=== PATIENT | male | born 1975 ===

== ENCOUNTER 2018-03-04 05:32 | Day surgery (SDC) | payer OTHER ==
[2018-03-04] VITALS (11 sets, daily range): BP systolic 108–117; BP diastolic 70–81
[~2018-03-04] VITALS: Ht 162.6 cm; Wt 95.3 kg
[~2018-03-04 05:32] MED LIST: FISH OIL OMEGA1 EAC3 PO; GABAPENTIN300 MG ORAL; IBUPROFEN600 MG ORAL; LEXAPRO10 MG ORAL
[2018-03-04] MEDS ORDERED: celeBREX 200mg Cap **SURGERY PATIENTS ONLY ORAL ONE ×2 (06:15→06:28)
[2018-03-04] MEDS ORDERED: oxyCONTIN 20mg tab ORAL ONE (06:15)
[2018-03-04] MEDS ORDERED: ceFAZolin sod 1 GM in D5W 55 ML IVPB SCH (06:30)
[2018-03-04] MEDS ORDERED: Ropivacaine 5mg/ml Vial 30ml INJ ONE (07:18)
[2018-03-04] MEDS ORDERED: LR 1000ml 1,000 ML IVLG SCH (07:33)
--- NOTE | 2018-03-04 07:36 | Anethesia Preoperative Eval ---
Anesthesia Pre-op PMH/ROS General Date of Evaluation: Mar 04, 2018 Time of Evaluation: 07:51 Anesthesiologist: Elsa ASA Score: ASA 2 Mallampati Score Class I : Soft palate, uvula, fauces, pillars visible Class II: Soft palate, uvula, fauces visible Class III: Soft palate, base of uvula visible Class IV: Only hard plate visible Mallampati Classification: Class II Surgeon: Deyanira Diagnosis: L Shoulder Pain Surgical Procedure: L Shoulder Arthroscopy Social History: current smoker Family History: no anesthesia problems Allergies: Coded Allergies: No Known Allergies (Unverified , 02/27/18) Medications: see eMAR Past Medical History Other: obesity - BMI 37 PSxH Narrative: L Shoulder Arthroscopy 2017 Anesthesia Pre-op Phys. Exam Physician Exam Last Vital Signs Date Time Temp Pulse Resp B/P (MAP) Pulse Ox O2 Delivery O2 Flow Rate FiO2 03/04/18 05:59 97.0 61 20 115/77 97 Room Air 97.0 Constitutional: NAD Neurologic: CN 2-12 intact Cardiovascular: RRR Respiratory: CTA Gastrointestinal: S/NT/ND Airway Exam Mallampati Score: Class II MO: full ROM: limited Teeth: missing, intact Anesthesia Pre-op A/P Risk Assessment & Plan Assessment: ASA 2 Plan: GA, L Supraclavicular Block Status Change Before Surgery: No Pre-Antibiotics Dru Grams Ancef IV Given Within 1 Hr of Incision: Yes Time Given: 08:31 Tonio Hunter MD Mar 04, 2018 07:36
[2018-03-04] MEDS ORDERED: Labetalol 5mg/ml 20ml vial IV PRN (07:45)
[2018-03-04] MEDS ORDERED: oxyCODONE HCL/Acetaminophen 5/325mg ORAL PRN (07:45)
[2018-03-04] MEDS ORDERED: Hydromorphone 0.5mg/0.5ml inj IVP PRN (07:45)
[2018-03-04] MEDS ORDERED: Midazolam 2mg/2ml Inj IVP PRN (07:45)
[2018-03-04] MEDS ORDERED: DiphenhydrAMINE 50mg/ml Inj IVP PRN (07:45)
[2018-03-04] MEDS ORDERED: Norco 5mg/325mg tab ORAL PRN ×2 (07:45→15:01)
[2018-03-04] MEDS ORDERED: Ketorolac 30mg Inj IV PRN ×2 (07:45)
[2018-03-04] MEDS ORDERED: HYDROcodone/Acetamin 7.5/325 tab ORAL PRN (07:45)
[2018-03-04] MEDS ORDERED: LORazepam Inj 2mg/ml 1ml IV PRN (07:45)
[2018-03-04] MEDS ORDERED: fentaNYL 100 mcg/2 mL IV PRN (07:45)
[2018-03-04] MEDS ORDERED: Atropine Inj 1mg/10ml Syr IV PRN (07:45)
[2018-03-04] MEDS ORDERED: NS Irrig 2000ml IRRIG ONE (08:00)
[2018-03-04] MEDS ORDERED: Alfentanil 2ml Inj ONE (08:00)
[2018-03-04] MEDS ORDERED: Dexamethasone 4mg/ml vial ONE (08:00)
[2018-03-04] MEDS ORDERED: Propofol 200mg/20ml IV ONE (08:00)
[2018-03-04] MEDS ORDERED: Lidocaine 1% MPF 10mg/ml 5ml ONE (08:00)
[2018-03-04] MEDS ORDERED: LR 1000ml ONE (08:00)
[2018-03-04] MEDS ORDERED: NS Irrig 4000ml IRRIG ONE (08:00)
[2018-03-04] MEDS ORDERED: Midazolam 2mg/2ml Inj ONE (08:00)
[2018-03-04] MEDS ORDERED: Labetalol 5mg/ml 20ml vial IV ONE (08:00)
--- NOTE | 2018-03-04 08:20 | Pre-Procedure Note/Attestation ---
Pre-Procedure Note/Attestation Complete Prior to Procedure Planned Procedure: left Procedure Narrative: left shoulder scope, full [place] Indications for Procedure Pre-Operative Diagnosis: left shoulder ac joint arthritis Attestation I attest that I discussed the nature of the procedure; its benefits; risks and complications; and alternatives (and the risks and benefits of such alternatives ), prior to the procedure, with the patient (or the patient's legal guest relations representative). I attest that, if there was a reasonable possibility of needing a blood transfusion, the patient (or the patient's legal guest relations representative) was given the [facility] standardized written summary, pursuant to the Tom Jennifer Blood Safety Act ([place] Health and Safety Code # 1645, as amended). I attest that I re-evaluated the patient just prior to the surgery and that there has been no change in the patient's H&P, except as documented below: NONE DARRON KELLER Mar 04, 2018 08:20
--- NOTE | 2018-03-04 09:48 | Brief Operative Note ---
Immediate Post Operative Note Operative Note Chief Complaint: left shoulder pain Pre-op Diagnosis: left shoulder ac join arthritis Procedure: left shoulder scope, sad, full talisha, rtc repair Post-op Diagnosis: same as pre-op Findings: consistent w/pre-op dx studies Surgeon: md sotero Edi Programmer Analyst: dion simon Anesthesiologist: md yamila Anesthesia: general, regional Specimen: none Complications: none Condition: stable Fluids: ns Estimated Blood Loss: minimal Drains: none Implant(s) used?: Yes - biomet RADHA SIMON Mar 04, 2018 09:48
--- NOTE | 2018-03-04 09:50 | Immediate Post-Op Evaluation ---
Immediate Post-Op Evalulation Immediate Post-Op Evalulation Procedure: L Shoulder Arthroscopy, Rotator cuff Repair Date of Evaluation: Mar 04, 2018 Time of Evaluation: 10:22 IV Fluids: 500 LR Blood Products: 0 Estimated Blood Loss: 20 Urinary Output: 0 Blood Pressure Systolic: 117 Blood Pressure Diastolic: 70 Pulse Rate: 82 Respiratory Rate: 16 O2 Sat by Pulse Oximetry: 95 Temperature (Fahrenheit): 98.2 Pain Score (1-10): 1 Nausea: No Vomiting: No Complications 0 Patient Status: awake, reacts, patent, none Hydration Status: adequate Dru Grams Ancef IV Given Within 1 Hr of Incision: Yes Time Given: 08:31 Tonio Hunter MD Mar 04, 2018 09:50
--- NOTE | 2018-03-04 10:11 | 48 Hour Post Anesthesia Eval ---
Post Anesthesia Evaluation Procedure: L Shoulder Arthroscopy, Rotator cuff Repair Date of Evaluation: Mar 04, 2018 Time of Evaluation: 12:32 Blood Pressure Systolic: 118 0: 72 Pulse Rate: 63 Respiratory Rate: 18 Temperature (Fahrenheit): 98.2 O2 Sat by Pulse Oximetry: 97 Airway: patent Nausea: No Vomiting: No Pain Intensity: 1 Hydration Status: adequate Cardiopulmonary Status: Stable Mental Status/LOC: patient returned to baseline Follow-up Care/Observations: 0 Post-Anesthesia Complications: 0 Follow-up care needed: ready to discharge Tonio Hunter MD Mar 04, 2018 10:11
[2018-03-04] MEDS ORDERED: Tylenol #3 tab (300mg/30mg) ORAL PRN (15:01)
[2018-03-04] MEDS ORDERED: D5 1/2NS 1,000 ML IV SCH (15:01)
[2018-03-04] MEDS ORDERED: HYDROmorphone 1mg/ml Carpuject SUBQ PRN (15:01)
--- NOTE | 2018-03-04 16:45 | Operative Note - Dictated ---
DATE OF OPERATION: 03/04/2018 PREOPERATIVE DIAGNOSES: 1. Left shoulder impingement. 2. Left shoulder acromioclavicular joint arthritis. POSTOPERATIVE DIAGNOSES: 1. Left shoulder impingement. 2. Left shoulder acromioclavicular joint arthritis. 3. Left shoulder 1 cm full-thickness rotator cuff tear. PROCEDURE: 1. Left shoulder arthroscopy and extensive intra-articular shaving. 2. Left shoulder subacromial bursoscopy, bursectomy, subacromial decompression. 3. Left shoulder full-Steve procedure (resection of the distal 1 cm of the clavicle.) 4. Left shoulder arthroscopic rotator cuff repair using single Biomet 2.9 mm JuggerKnot anchor. SURGEON: Judah Mcmillan M.D. SURVEY ENGINEER: Margaux Padilla PA-C. Hydrography Teacher was present during the actual operative portion of the case and was important and essential part of the operation. During the operation, the rn first assistant held and operated the arthroscopic camera for visualization, assisted by manipulating the arm to help with visualization, and helped with essential parts of the repair process as necessary such as operating surgical instruments under surgeon supervision, suture management, and wound closures. ANESTHESIOLOGIST: Tonio Hunter M.D. ANESTHESIA: LMA anesthesia combined with interscalene block for postoperative pain management. EBL: Minimal. COMPLICATIONS: None. SURGICAL INDICATION: The patient is a 42-year-old male, who sustained the above injury to his shoulder. The patient was treated non-operative initially, but this did not alleviate the patients symptoms. Therefore, after discussing all non-surgical and surgical options, and discussing all foreseeable risk and benefits of surgery, the patient opted for surgical treatment as described above. PATIENT POSITIONING: Patient was brought to the operating room table and was placed on the operating room table. All pressure points were well padded. General anesthesia was induced and patient was then placed in the lateral decubitus position. All pressure points were well padded again and an axillary roll was placed. Patient shoulder was then prepped and draped in the usual sterile fashion. Time out was performed and the appropriate preoperative antibiotic was given by the anesthesiologist. EXAMINATION OF SHOULDER UNDER ANESTHESIA: The shoulder was examined under anesthesia with all muscles well relaxed. The shoulder was forward flexed, abducted and was placed through full range of external and internal rotation. The anterior, posterior, and inferior stability of the shoulder was checked. The exam revealed no evidence of adhesive capsulitis and no evidence of instability. PORTAL PLACEMENT: The posterior portal was established 2 cm inferior and 1 cm medial to the edge of the posterior acromion. 1 cm skin incision was made using an eleven blade and using the blunt obturator, the cannula was gently placed through the capsule. The mid-glenoid portal was established just lateral to the coracoid process under direct visualization. Direction of the cannula was first established using a spinal needle, and subsequently, the cannula was placed through the capsule with a blunt obturator. DIAGNOSTIC ARTHROSCOPY: The biceps tendon was probed and pulled through the joint for visualization. It appeared normal. The biceps anchor was palpated with a probe and was visualized. It appeared well attached and there was no evidence of SLAP tear. The posterior labrum and axillary recess was visualized. This was normal and there was no evidence of loose cartilage or fragments in this area. The glenoid articular surface was visualized and it appeared normal. The articular surface of the rotator cuff was visualized and probed next. There was evidence of a full-thickness rotator cuff tear, which was marked with a PDS suture for identification of the bursal side. This measured approximately 1 cm. The Humeral head articular surface was then visualized. There was no evidence of articular cartilage damage. Next the anterior labrum, middle glenohumeral ligament, subscapularis tendon, and the anterior inferior glenohumeral ligament were evaluated. These structures were completely normal. At this point, the scope was moved to the mid-glenoid portal and the posterior structures including the posterior labrum, posterior capsule and posterior cuff were visualized. These structures were completely normal. The subscapularis recess was devoid of any loose bodies and the anterior capsule was well attached to the humeral neck. The middle and anterior inferior glenohumeral ligament was visualized. These structures were completely normal. OPERATIVE DEBRIDEMENTS AND REPAIR: Care was given to all partial thickness tears and frayed structures in the shoulder joint. The frayed rotator cuff and labrum was debrided using a shaver initially through the anterior portal and subsequently through the posterior portal to complete the debridement. This allowed for smooth debridement of all affected structures and all loose fragments were removed. DIAGNOSTIC BURSOSCOPY AND SUBACROMIAL DECOMPRESSION: The subacromial bursa was entered from the posterior portal. The anterior portal was established under the CA ligament using a switching stick. Subacromial arthroscopy was initiated. There was extensive bursitis and thickened and inflamed bursa tissue present. The CA ligament appeared to be scuffed and frayed. The shaver was placed through the anterior cannula and debridement of the hypertrophic bursa tissue was accomplished. Once visualization was adequate, a lateral portal was established using a blunt trochar in the mid portion of the acromion bone in the anterior-posterior direction and approximately 2 cm lateral to the lateral edge of the acromion. Using combination of shaver and electrocautery the CA ligament was released from the undersurface of the acromion and a complete bursectomy was accomplished. At this point, a subacromial decompression was performed using a emerald initially taking off 5-8 mm of the anterolateral edge of the acromion from the lateral portal and viewing from the posterior portal. Then the lateral border of the undersurface of the acromion was decompressed to the same dept as the anterolateral edge. A posterior trough was then created in the acromion in line with the posterior edge of the clavicle. At this point, the scope was placed in the lateral portal and the subacromial decompression was performed from the posterior portal decompressing the undersurface of the acromion to dept of 5-8 mm. The decompression was performed anterior to the previously marked trough all the way medially to the level of the AC joint. At all times, care was given not to take off too much bone in order to avoid risk of fracture of the acromion. An excellent subacromial decompression was performed in this fashion. At this point, the bursal side of the rotator cuff was examined. All the bursa over the rotator cuff was removed and the rotator cuff was examined with a probe. The arm was placed into external rotation, neutral, and then internal rotation and a full-thickness 1 cm rotator cuff tear, which was non-retracted. The scope was then placed in the posterior portal and the subacromial decompression was rechecked to assure there is no area of bone spur that would be still impinging onto the rotator cuff. EVALUATION OF DISTAL CLAVICLE AND DISTAL CLAVICLE RESECTION: Care was given to the distal end of the clavicle. Using electrocautery and kristian, the distal end of the bursa and soft tissue around the distal end of the clavicle was debrided and cleaned. Care was given not to inflict excessive trauma to the ligaments of the AC joint. The distal end of the clavicle appeared to have an inferior osteophyte extending down well bellow the level of the acromion at the level of the AC joint. This appeared to be impinging onto the supraspinatus muscle belly and the musculotendinous junction of the rotator cuff. The entire AC joint appeared to be arthritic as well. A full-Steve procedure was then performed resecting the distal 1 cm of the clavicle using a emerald. The resection was initially performed from the posterior portal and view from the lateral portal, and it subsequently completed viewing from the posterior portal and resecting through the anterior portal with a emerald to assure adequate and even resection. Care was given not to damage the superior acromioclavicular ligaments or the coracoacromial ligaments. The extend of the resection was measured by measuring the distance between two spinal needles that were placed perpendicularly through the skin at the edge of the acromion and distal clavicle. The scope was placed in the lateral portal and the rotator cuff was visualized. The rotator cuff revealed a crescent-shaped, non-retracted 1 cm tear. The rotator cuff foot print adjacent to the articular cartilage of the humeral head was identified. This area was debrided initially using kristian and subsequently using emerald to provide adequate bleeding bony surface to accept the rotator cuff tendon. Attention was given to repair the rotator cuff with as little tension as possible. At this point, an arthroscopic punch was used to create holes for suture anchor placement at the medial edge of the foot print through separate stab wound incisions and an arthroscopic tap was used to prepare the holes. One Biomet 2.9 mm JuggerKnot anchor double loaded with two #2 non-absorbable strong suture was placed in previously prepared holes. Using standard arthroscopic suture passing instruments, the sutures were passed through the edge of rotator cuff with minimal trauma to the cuff tissue. Care was given to obtain large enough bites of the rotator cuff for the sutures to hold well. Once the sutures were passed through the cuff, the repair was secured onto the rotator cuff foot print using SMC sliding knots followed by 3 alternating-post half hitches. This allowed tension free repair of the rotator cuff with excellent stability and water tight closure. The cuff repair security was assured by palpating the repair with a probe. CONDITION AT DISCHARGE FROM OPERATING ROOM: The skin was re-approximated and sterile dressing and sling were applied. All lap counts and instrument counts were correct. The patient tolerated the procedure well without complications and was taken to the recovery room in stable conditions. Judah Mcmillan M.D. DR: MAMIE JOB#: [id number] CC:
== END 2018-03-04 13:30 | disposition home or self-care (01) ==
LOC: SUR 05:32
DX: M75.42 Impingement syndrome of left shoulder (principal); M19.012 Primary osteoarthritis, left shoulder; M75.122 Complete rotator cuff tear or rupture of left shoulder, not specified as traumatic; F32.9 Major depressive disorder, single episode, unspecified; Z83.3 Family history of diabetes mellitus
CPT/HCPCS: 29824; 29826; 29827; J0690; J1100; J1885; J2250; J2405; J2704; J2795; J3490; J7120; 94003; 94150; C1713